=== PATIENT | female | born 1985 | race Caucasian/White ===

== ENCOUNTER 2022-02-21 07:37 | Inpatient (IN) | payer MEDICAID ==
[~2022-02-21] VITALS: Ht 167.6 cm; Wt 106.1 kg
[2022-02-21] MEDS ORDERED: PREN-176 MT (08:04)
[2022-02-21] MEDS ORDERED: NALOXONE HCL 0.4 MG/ML 1ML VIAL IM PRN (08:30)
[2022-02-21] MEDS ORDERED: METHYLERGONOVINE MALEATE 0.2 MG/ML IM PRN (08:30)
[2022-02-21] MEDS ORDERED: LIDOCAINE HCL 1% 20ML VIAL (Pyxis) INJ INFIL NR (08:30)
[2022-02-21] MEDS ORDERED: CARBOPROST TROMETHAMINE 250 MCG/ML AMPUL IM PRN (08:30)
[2022-02-21] MEDS ORDERED: PENICILLIN G POTASSIUM 5 MMU in DEXT 5% WATER 100 ML IV SCH (09:00)
[2022-02-21] MEDS: LACTATED RINGERS 1,000 ML IV SCH ×2 (09:44→13:48)
[2022-02-21 11:14] LABS: BASOPHILS % 0.5 % (0.0-2.0); EOSINOPHILS % 0.8 % (0.0-5.0); HEMATOCRIT. 37.6 % (36.0-48.0); HEMOGLOBIN. 12.4 g/dL (12.0-16.0); LYMPHOCYTES % 16.3 % (20.0-50.0); MEAN CORPUSCULAR HEMOGLOBIN 27.5 pg (28.0-32.0); MEAN CORPUSCULAR VOLUME 83.5 fL (81.0-99.0); MEAN PLATELET VOLUME 10.5 fl (7.4-10.4); MONOCYTES % 5.6 % (2.0-8.0); NEUTROPHILS % 76.8 % (40.0-76.0); PLATELET 179 x1000/uL (130-400); RED CELL DISTRIBUTION WIDTH 16.2 % (11.6-14.6)
[2022-02-21 11:18] LABS: CLARITY URINE CLEAR (CLEAR); COLOR URINE YELLOW (YELLOW); KETONES URINE NEGATIVE (NEGATIVE); LEUKOCYTE ESTERASE URINE NEGATIVE (NEGATIVE); NITRITE URINE NEGATIVE (NEGATIVE); OCCULT BLOOD URINE NEGATIVE (NEGATIVE); PH URINE 5.5 (4.5-8.0); PROTEIN URINE TRACE (NEGATIVE); SPECIFIC GRAVITY URINE 1.024 (1.005-1.030); UROBILINOGEN URINE 0.2 E.U./dL (0.2-1.0)
[2022-02-21 11:33] LABS: PROTHROMBIN TIME 10.3 sec (9.6-11.0)
[2022-02-21 11:43] LABS: *AMPHETAMINES SCREEN URINE NEGATIVE (NEGATIVE); *BARBITURATES SCREEN URINE NEGATIVE (NEGATIVE); *BENZODIAZEPINES SCREEN URINE NEGATIVE (NEGATIVE); *COCAINE SCREEN URINE NEGATIVE (NEGATIVE); CANNABINOID URINE SCREEN NEGATIVE (NEGATIVE); METHADONE URINE SCREEN NEGATIVE (NEGATIVE); OPIATES URINE SCREEN NEGATIVE (NEGATIVE); PHENCYCLIDINE URINE SCREEN NEGATIVE (NEGATIVE)
[2022-02-21] MEDS: DEXT 5%/LR + PITOCIN 20UNITS/L 1,000 ML IV SCH (13:28)
[2022-02-21 14:07] LABS: HEPATITIS B SURFACE ANTIGEN NEGATIVE
[2022-02-21] MEDS: ACETAMINOPHEN 500MG TABLET PO NR ×2 (16:14→21:19)
[2022-02-21] MEDS: PENICILLIN G POTASSIUM 2.5 MMU in DEXTROSE 5% WATER 50 ML IV SCH ×2 (17:24→21:19)
[2022-02-21] MEDS: BUTORPHANOL TARTRATE 2 MG/ML VIAL IV PRN (23:33)
[2022-02-22] MEDS: BUTORPHANOL TARTRATE 2 MG/ML VIAL IV PRN (01:40)
[2022-02-22] MEDS: PENICILLIN G POTASSIUM 2.5 MMU in DEXTROSE 5% WATER 50 ML IV SCH ×2 (02:45→06:20)
[2022-02-22] MEDS ORDERED: ROPIVACAINE HCL/PF EPIDURAL 200 ML EPI ONE (02:57)
[2022-02-22] MEDS: LACTATED RINGERS 1,000 ML IV SCH ×2 (03:01→06:27)
[2022-02-22] MEDS ORDERED: FENTANYL CITRATE/PF 50MCG/ML 2ML VIAL ONE (03:38)
[2022-02-22] MEDS ORDERED: ROPIVACAINE HCL/PF EPIDURAL 200 ML EPI SCH (04:00)
[2022-02-22] MEDS: DEXT 5%/LR + PITOCIN 20UNITS/L 1,000 ML IV SCH (07:46)
[2022-02-22 09:30] VITALS: BP 114/52
[2022-02-22] MEDS ORDERED: LIDOCAINE HCL 2%/EPINEPHRINE 1:100,000 20 ML VIAL INFIL ONE (10:09)
[2022-02-22] MEDS ORDERED: HEMORRHOIDAL SUPP PR PRN (11:30)
[2022-02-22] MEDS ORDERED: RHO(D) IMMUNE GLOBULIN 300 MCG/SYR IM PRN (11:30)
[2022-02-22] MEDS ORDERED: LANOLIN OINT 7GM TUBE TOP PRN (11:30)
[2022-02-22] MEDS ORDERED: OXYCODONE HCL/ACETAMINOPHEN 5/325MG TABLET PO PRN (11:30)
[2022-02-22] MEDS ORDERED: IBUPROFEN 400MG TABLET PO PRN (11:30)
[2022-02-22] MEDS ORDERED: IBUPROFEN 800MG TABLET PO PRN (11:30)
[2022-02-22] MEDS ORDERED: BISACODYL 10MG SUPP PR PRN (11:30)
[2022-02-22] MEDS ORDERED: DEXT 5%/LR + PITOCIN 20UNITS/L 1,000 ML IV SCH (11:30)
[2022-02-22] MEDS ORDERED: DIPHENHYDRAMINE 25MG CAPSULE PO PRN (11:30)
[2022-02-22 12:30] VITALS: BP 104/57
[2022-02-22] MEDS: SIMETHICONE 80MG TABLET CHEW PO SCH ×3 (12:42→21:16)
[2022-02-22] MEDS: MAGNESIUM/ALUMINUM HYDROXIDE/SIMETHICONE 30ML UDC PO SCH ×3 (12:42→21:17)
[2022-02-22] MEDS: GLYCERIN/WITCH HAZEL LEAF MEDICATED PAD TOP PRN (12:43)
[2022-02-22] MEDS: BENZOCAINE/LANOLIN/ALOE VERA SPRAY TOP PRN (12:44)
[2022-02-22 16:30] VITALS: BP 105/63
[2022-02-22 19:30] VITALS: BP 103/50
[2022-02-22] MEDS: DOCUSATE SODIUM 100MG CAPSULE PO SCH (21:17)
[2022-02-23 04:00] VITALS: BP 100/51
[2022-02-23 08:00] VITALS: BP 111/56
[2022-02-23] MEDS: FERROUS SULFATE 325MG TABLET PO SCH (09:09)
[2022-02-23] MEDS: MAGNESIUM/ALUMINUM HYDROXIDE/SIMETHICONE 30ML UDC PO SCH ×2 (09:09→21:10)
[2022-02-23] MEDS: PRENATAL VIT/FE FUMARATE/FA TABLET PO SCH (09:10)
[2022-02-23] MEDS: SIMETHICONE 80MG TABLET CHEW PO SCH ×2 (09:10→21:10)
[2022-02-23 11:00] LABS: BASOPHILS % 0.3 % (0.0-2.0); EOSINOPHILS % 1.3 % (0.0-5.0); HEMATOCRIT. 33.5 % (36.0-48.0); LYMPHOCYTES % 18.5 % (20.0-50.0); MEAN CORPUSCULAR VOLUME 85.1 fL (81.0-99.0); MEAN PLATELET VOLUME 9.5 fl (7.4-10.4); NEUTROPHILS % 74.9 % (40.0-76.0); PLATELET 160 x1000/uL (130-400); RED BLOOD CELL COUNT 3.94 mill/uL (4.2-5.4); RED CELL DISTRIBUTION WIDTH 16.1 % (11.6-14.6)
[2022-02-23 12:59] LABS: CLARITY URINE CLEAR (CLEAR); COLOR URINE ORANGE (YELLOW); KETONES URINE NEGATIVE (NEGATIVE); LEUKOCYTE ESTERASE URINE 1+ (NEGATIVE); NITRITE URINE NEGATIVE (NEGATIVE); OCCULT BLOOD URINE 3+ (NEGATIVE); PH URINE 7.5 (4.5-8.0); PROTEIN URINE NEGATIVE (NEGATIVE); SPECIFIC GRAVITY URINE 1.008 (1.005-1.030); UROBILINOGEN URINE 0.2 E.U./dL (0.2-1.0)
[2022-02-23 16:00] VITALS: BP 122/69
[2022-02-23 19:30] VITALS: BP 120/81
[2022-02-23] MEDS: OXYBUTYNIN CHLORIDE 5MG TABLET PO SCH (21:10)
[2022-02-23] MEDS: DOCUSATE SODIUM 100MG CAPSULE PO SCH (21:10)
[2022-02-24 04:00] VITALS: BP 116/57
[2022-02-24 07:50] VITALS: BP 117/69
[2022-02-24] MEDS: GLYCERIN/WITCH HAZEL LEAF MEDICATED PAD TOP PRN (08:31)
[2022-02-24] MEDS: SIMETHICONE 80MG TABLET CHEW PO SCH (08:31)
[2022-02-24] MEDS: OXYBUTYNIN CHLORIDE 5MG TABLET PO SCH (08:31)
[2022-02-24] MEDS: PRENATAL VIT/FE FUMARATE/FA TABLET PO SCH (08:31)
[2022-02-24] MEDS: MAGNESIUM/ALUMINUM HYDROXIDE/SIMETHICONE 30ML UDC PO SCH (08:31)
[2022-02-24] MEDS: FERROUS SULFATE 325MG TABLET PO SCH (08:31)
[2022-02-24] MEDS: BENZOCAINE/LANOLIN/ALOE VERA SPRAY TOP PRN (08:32)
== END 2022-02-24 09:55 | disposition home or self-care (01) | DRG 560 ==
LOC: 8 EST LDRP 07:37 → OBSVTOIN 07:37 → 8EST 02-22 09:40
PROVIDERS: ADMIT Obstetrics & Gynecology; ATTEND Obstetrics & Gynecology
PROC: 3E0S3BZ Introduction of Anesthetic Agent into Epidural Space, Percutaneous Approach (ICD-10-PCS; principal; 2022-02-23)
PROC: 00HU33Z Insertion of Infusion Device into Spinal Canal, Percutaneous Approach (ICD-10-PCS; 2022-02-23)
PROC: 10E0XZZ Delivery of Products of Conception, External Approach (ICD-10-PCS; 2022-02-23)
DX: O48.0 Post-term pregnancy (principal); Z37.0 Single live birth; O76 Abnormality in fetal heart rate and rhythm complicating labor and delivery; Z20.822 Contact with and (suspected) exposure to COVID-19; Z3A.40 40 weeks gestation of pregnancy; R32 Unspecified urinary incontinence
CPT/HCPCS: 36415; 76805; 80305; 81003; 85025; 86592; 86703; 86762; 86850; 86900; 87340; 87426; 99281; J0595; J2540; J2590; J2795; J3010; J3490; J7060; J7120